=== PATIENT | male | born 1995 | race Caucasian/White ===

== ENCOUNTER 2018-12-05 22:26 | Emergency (ER) | payer OTHER ==
[~2018-12-05] VITALS: Ht 154.9 cm; Wt 56.7 kg
[2018-12-05 22:34] VITALS: Ht 154.9 cm; Wt 56.7 kg
[2018-12-05 23:18] VITALS: BP 145/99
== END 2018-12-05 23:18 | disposition other institution (70) ==
LOC: ED 22:26
DX: Z02.89 Encounter for other administrative examinations (principal)